=== PATIENT | female | born 2000 ===

== ENCOUNTER 2024-11-15 12:32 | Outpatient (OUT) | payer BC, SELFPAY ==
[2024-11-15 13:06] LABS: Hematocrit 41.9 % (36.0-48.0); Hemoglobin 14.8 g/dL (12.0-16.0); Immature Granulocytes Abs Auto 0.06 10^3/uL (0.00-0.03); Immature Granulocytes Pct Auto 0.4 % (0.0-0.5); Lymphocytes Absolute Auto 1.9 10^3/uL (1.2-3.8); Mean Corpuscular HGB Conc 35.3 g/dL (29.9-35.2); Mean Corpuscular Hemoglobin 31.2 pg (26.7-34.0); Mean Corpuscular Volume 88.4 fL (81.0-99.0); Platelet Count 343 10^3/uL (150-450); Red Blood Count 4.74 10^6/uL (4.20-5.40); White Blood Count 15.7 10^3/uL (4.0-11.0)
[2024-11-15 13:47] LABS: Cannabinoid Screen Urine NEGATIVE (NEGATIVE); Methamphetamines Screen Urine NEGATIVE (NEGATIVE); Tricyclic Antidepressant Urine NEGATIVE (NEGATIVE)
[2024-11-16 06:07] LABS: Rubella Antibodies, IgG 5.30 index (Immune >0.99)
[2024-11-16 12:09] LABS: Rapid Plasma Reagin, Quant Non Reactive titer (NonRea<1:1)
== END 2024-11-15 12:33 | disposition home or self-care (01) ==
LOC: LAB 12:34
PROVIDERS: PCP Nurse Practitioner Family; Visit Provider Obstetrics & Gynecology
DX: Z34.01 Encounter for supervision of normal first pregnancy, first trimester (principal); N92.6 Irregular menstruation, unspecified
CPT/HCPCS: 36415; 80307; 83036; 85025; 86592; 86762; 86803; 86850; 86900; 86901; 87077; 87086; 87186; 87340; 87389

== ENCOUNTER 2024-12-16 14:50 | Outpatient (REF) | payer BC, SELFPAY ==
--- OUTSIDE RECORDS SUMMARY | 2024-12-16 09:10 | XMS_ITS | Encounter Summary ---
Author Organization [facility] Address [address] [place] [address] Care Team Providers Care Associate Professor Of Pathology Name Role Phone Unavailable Primary Care Provider Unavailabl e Reason for Visit * ReasonCommentsRoutine Visit Encounter Details DateTypeDepartmentCare Team (Latest Contact Info)Mlqksrgfouy92/06/2025 9:10 AM ESTRoutine [facility] [address] [place] [phone] Isaías Fisher, [address] [place] [phone] Second trimester ([facility]); 15 weeks gestation of ([facility]); Screening, , for anatomic survey ([facility]) Social History Tobacco UseTypesPacks/DayYears UsedDateSmoking Tobacco: Never Assessed Estimated Date of CtyzxkzaZaxmjhjhWwq97/28/2026ased on Ultrasound, FHR- 120Sex and Gender InformationValueDate RecordedSex Assigned at TzxqmMemhru45/31/2025 9:39 AM EDTLegal TdmBcjssd06/20/2025 10:38 AM EDTGender YqvikfzdQpqiwi37/31/2025 9:39 AM EDTSexual ZmsvnhsqxrfWxocvevv57/31/2025 9:39 AM EDTdocumented as of this encounter Last Filed Vital Signs Vital SignReadingTime TakenCommentsBlood Amjvzpet359/6412/16/2024 9:39 AM EST Pulse--Temperature--Respiratory Rate--Oxygen Saturation--Inhaled Oxygen Concentration--Mqyomp67.7 kg (200 lb)12/16/2024 9:39 AM ESTHeight--Body Mass Index--documented in this encounter Plan of Treatment DateTypeDepartmentCare Team (Latest Contact Info)Iofynxosrve29/08/2025 10:30 AM ESTAncillary Procedure [facility] [address] [place] [phone] 01/17/2025 11:30 AM ESTRoutine [facility] [address] [place] [phone] Aye Castillo PA [address] [place] [address] NameTypePriorityAssociated DiagnosesOrder SchedulePap SmearPathology and CytologyRoutine Second trimester ([facility]) Ordered: 5Alpha fetoprotein, maternalLabRoutine Second trimester ([facility]) Expected: 12/16/2024 (Approximate), Expires: 02/15/2025SURESWAB(R) ADVANCED VAGINITIS PLUS, TMAPathology and CytologyRoutine Second trimester ([facility]) Ordered: 5CHLAMYDIA TRACHOMATIS (GENITO/STI)LabRoutine Second trimester ([facility]) Ordered: 12/16/2024Neisseria gonorrhea DNA probe, directLabRoutine Second trimester ([facility]) Ordered: 12/16/2024US OB 14+ weeks anatomy scanImagingRoutine Screening, , for anatomic survey ([facility]) Expected: 12/16/2024, Expires: 03/18/2025documented as of this encounter Procedures Procedure NamePriorityDate/TimeAssociated DiagnosisCommentsPOCT URINALYSIS OIZCZFSRPiufavr94/06/2025 9:39 AM EST 15 weeks gestation of ([facility]) documented in this encounter Results * POCT urinalysis dipstick manually resulted (12/16/2024 9:39 AM EST)Component ValueRef RangeTest MethodAnalysis TimePerformed AtPathologist SignatureColor, UAYellowClarity, UAClearGlucose, UANegativeNegative - 1999(110) ++++ mg/dL Bilirubin, UANegativeNegative - 4(70) +++ mg/dLKetones, UANegativeNegative - 160(16) ++++ mg/dLSpec Grav, UA1.0101 - 1.03Blood, UANegativeNegative - 50 Neftaly/mcLpH, UA6.55 - 9Protein, UANegativeNegative - 2000(20) ++++ mg/dL Urobilinogen, UA1.00.2 - 12 mg/dLLeukocytes, UANegativeNegative - 500+++ Stuart/mcLNitrite, UANegativeNegative - PositiveSpecimen (Source)Anatomical Location / LateralityCollection Method / VolumeCollection TimeReceived Time Urine12/16/2024 9:39 AM EST Narrative Authorizing ProviderResult TypeResult StatusCorey Phillip DOPOINT OF CARE TEST ENTER/EDIT ORDERABLESFinal Result documented in this encounter Visit Diagnoses Diagnosis Second trimester ([facility]) state, incidental 15 weeks gestation of ([facility]) Screening, , for anatomic survey ([facility]) Encounter for anatomic survey documented in this encounter
--- OUTSIDE RECORDS SUMMARY | 2024-12-16 14:54 | XMS_ITS ---
Author Organization [facility] Source Produ ction (ClinicalSummary Clone) Address Unknown Care Team Providers Care Shear Assembler Name Role Phone Unavailable Primary Care Physician Unavailab le Results * [UNITY] ANEUPLOIDY NIPT Performed by: Viddyad Component Value Range Date Fraction 4.0% 11/20/2024 07:09 am UTCRh(D) NIPTRhD GFXROQPB45/11/2025 07:09 am UTCSex Chromosome AneuploidyNOT WBNHBPZL49/11/2025 07:09 am UTCMonosomy XLOW RISK <1 in 07:09 am UTCTrisomy 13LOW RISK <1 in 07:09 am UTCTrisomy 18LOW RISK <1 in 07:09 am UTCTrisomy 21LOW RISK <1 in 07:09 am UTCFetal UnrNNBC86/11/2025 07:09 am UTCPregnancy NnkbkhekrFGMVMAPHT72/11/2025 07:09 am UTCFor detailed report, see PDFSee PDF 11/20/2024 07:09 am UTC1 07:09 am UTC Social History Observation Value Start Date End Date
--- OUTSIDE RECORDS SUMMARY | 2024-12-16 14:54 | XMS_ITS | Encounter Summary ---
Author Organization [facility] Address [address] [place] [address] Care Team Providers Care Loftsman/Woman Name Role Phone Unavailable Primary Care Provider Unavailabl e Encounter Details DateTypeDepartmentCare Team (Latest Contact Info)Jeyiopndafg76/06/2025amboo flowsheet [facility] [address] [place] [address] Isaías Fisher DO [address] [place], [place] [phone] Social History Tobacco UseTypesPacks/DayYears UsedDateSmoking Tobacco: Never Assessed Estimated Date of BganpnmmKaftsipsMez02/28/2026Based on Ultrasound, FHR- 120Sex and Gender InformationValueDate RecordedSex Assigned at MiobxKisbom15/31/2025 9:39 AM EDTLegal OxmXcjrgn20/20/2025 10:38 AM EDTGender YixxpyicLofcfb20/31/2025 9:39 AM EDTSexual BnvqslkooiqGzahoqxl26/31/2025 9:39 AM EDTdocumented as of this encounter Plan of Treatment DateTypeDepartmentCare Team (Latest Contact Info)Sguwuksnvjh73/08/2025 10:30 AM ESTAncillary Procedure [facility] [address] [place] [address] 01/17/2025 11:30 AM ESTRoutine [facility] [address] [place] [phone] Aye Castillo PA [address] [place] [address] [place] [address] documented as of this encounter Visit Diagnoses Not on filedocumented in this encounter
--- OUTSIDE RECORDS SUMMARY | 2024-12-16 14:54 | XMS_ITS ---
Author Organization [facility] Source Produ ction (ClinicalSummary Clone) Address Unknown Care Team Providers Care Information Technology Architect Name Role Phone Unavailable Primary Care Physician Unavailab le Results * [UNITY] CARRIER SCREEN Performed by: Pursuit Management Component Value Range Date Sickle Cell Disease/Beta-Thalassemia/Hemoglobino pathies carrier screen NEGATIVE 11/23/2024 01:38 am UTCAlpha-Thalassemia carrier fdvxjcCFDNHEHS57/14/2025 01:38 am UTCCystic Fibrosis carrier skhentTXITHHTU58/14/2025 01:38 am UTCSpinal Muscular Atrophy carrier screenNEGATIVE 2 SMN1 copies, SNP not scmaykv6411/23/2024 01:38 am UTCFor detailed report, see PDFSee PDF11/23/2024 01:38 am UTC 11/23/2024 01:38 am UT Social History Observation Value Start Date End Date
--- OUTSIDE RECORDS SUMMARY | 2024-12-16 14:55 | XMS_ITS | Clinical Summary ---
Author Organization [facility] Address [address], [address] [place] [address] Care Team Providers Care Application Packaging Specialist Name Role Phone Jose MariaHeather cuetolala Loera DO Primary Care Provider [phone] Allergies No known active allergies Medications No known medications Active Problems No known active problems Family History Medical HistoryRelationNameCommentsPsoriasisMotherJessica [facility] HospitalRelationName StatusCommentsMotherJessica [facility] Social History Tobacco UseTypesPacks/DayYears UsedDateSmoking Tobacco: NeverSmokeless Tobacco: Never Comments:NA Alcohol UseStandard Drinks/WeekCommentsNot Currently0 (1 standard drink = 0.6 oz pure alcohol)AUDIT-CAnswerDate RecordedQ1: How often do you have a drink containing alcohol?Never10/21/2022Q2: How many drinks containing alcohol do you have on a typical day when you are drinking?Patient does not drink10/21/2022Q3: How often do you have six or more drinks on one occasion?Never10/21/2022Overall Financial Resource Strain (CARDIA)AnswerDate RecordedHow hard is it for you to pay for the very basics like food, housing, medical care, and heating?Not hard at all07/02/2023HQ-2AnswerDate RecordedPHQ-9 Total Gzdhl702Exercise Vital SignAnswerDate RecordedOn average, how many days per week do you engage in moderate to strenuous exercise (like a brisk walk)?4 days05/20/2024On average, how many minutes do you engage in exercise at this level?60 min06/30/2023Hunger Vital SignAnswerDate RecordedWithin the past 12 months, you worried that your food would run out before you got the money to buymore.Never true07/02/2023 Within the past 12 months, the food you bought just didn't last and you didn't have money to get more.Never true07/02/2023RAPARE - TransportationAnswerDate RecordedLack of Transportation (Medical)Not on file07/02/2023In the past 12 months, has lack of transportation kept you from meetings, work, or from getting things needed for daily living?No07/02/2023Housing Stability Vital SignAnswer Date RecordedUnable to Pay for Housing in the Last YearNot on file07/02/2023 Number of Places Lived in the Last YearNot on file07/02/2023In the last 12 months, was there a time when you did not have a steady place to sleep or slept in elizabethelter (including now)?No07/02/2023Food InsecurityAnswerDate RecordedWithin the past 12 months, you worried that your food would run out before you got the money to buymore.Within the past 12 months, the food you bought just didn't last and you didn't have money to get more.Interpersonal Safety Domain Source: IP Abuse ScreeningAnswerDate RecordedRead-Only, Retired: Physical BucwlOorjzl46/11/2023Read-Only, Retired: Verbal GwqfdRdzjhg48/11/2023 Read-Only, Retired: Emotional uxddbBqpehc23/11/2023Read-Only, Retired: Financial SwnmmKesujj45/11/2023Read-Only, Retired: Sexual zvmetCeciof91/11/2023 CommentsNoSex and Gender InformationValueDate RecordedSex Assigned at Ivsrwi2403/18/2023 3:34 PM ESTLegal LgcGyetis88/10/2013 1:18 PM ESTGender Identity Avuhll4203/18/2023 3:34 PM ESTSexual PzvqkvaoebyXpnegquk16/06/2024 3:34 PM EST Last Filed Vital Signs Vital SignReadingTime TakenCommentsBlood Uoxjcies404/8401/28/2024 7:05 AM EST Dqjhl954801/28/2024 7:05 AM ACXHtmardwqtxs46.8 ??C (98.3 ??F)10/21/2022 8:34 AM EDTRespiratory Ygne167610/21/2022 8:34 AM EDTOxygen Uccphvjsth79%01/28/2024 7:05 AM ESTInhaled Oxygen Concentration--Ljnrcy51.1 kg (214 lb)01/28/2024 7:05 AM EST Xkhxek065.1 cm (5' 5 )01/28/2024 7:05 AM ESTBody Mass Index35.6101/28/2024 7:05 AM EST Plan of Treatment Health MaintenanceDue DateLast DoneCommentsVaricella vaccine (1 of 2 - 13+ 2- dose series)2012HIV zmptst7203/14/2014HPV vaccine (1 - 3-dose series) 2014Hepatitis C ntylpc5903/14/2017DTaP/Tdap/Td vaccine (1 - Tdap)2018 Hepatitis B vaccine (1 of 3 - 19+ 3-dose series)2018Flu vaccine (#1) 09/10/2024OVID-19 Vaccine (2023- season)2024Depression Screen 512/, 4Pap smear07/01//Hepatitis A vaccine Aged OutNo longer eligible based on patient's age to complete this topicHib vaccineAged OutNo longer eligible based on patient's age to complete this topic Meningococcal (ACWY) vaccineAged OutNo longer eligible based on patient's age to complete this topicMeningococcal B vaccineAged OutNo longer eligible based on patient's age to complete this topicPneumococcal 0-49 years VaccineAged OutNo longer eligible based on patient's age to complete this topicPolio vaccineAged OutNo longer eligible based on patient's age to complete this topic Procedures Procedure NamePriorityDate/TimeAssociated DiagnosisCommentsGYN CYTOLOGYRoutine 07/02/2023 12:00 AM EDT from Last 3 Months or Most Recently Relevant to Health Maintenance Results * ROUGHING MILL OPERATOR Cytology (07/02/2023 12:00 AM EDT)ComponentValueRef RangeTest Method Analysis TimePerformed AtPathologist SignatureCytology ReportPath Number: [id number] DIAGNOSIS Imaged ThinPrep Pap - Cervical (1 monolayer slide): Specimen Adequacy: ? Satisfactory for evaluation. ? - Endocervical/transformation zone component present. Descriptive Diagnosis: ? Negative for intraepithelial lesion or malignancy. ?? Cytotech Screener: ??EY Electronically Signed Out Brigette Young CT(ASCP) /07/17/2023 Source of Specimen: A: Imaged ThinPrep Pap - Cervical (1 monolayer slide) HPV Reflex?......................HPV if Abnormal Clinical History Z12.4 Encounter for screening for malignant neoplasm of cervix LMP: ??06/21/23 Processing Lab: [address] [address] Interpretation performed at [address] [address] This Pap Test has been evaluated with the assistance of the AgentBridgePrep Pap Test Imaging System. The Pap smear is a screening test primarily for squamous epithelial lesions, which is subject to both false negative and false positive results. Your patient should be reminded to consult you immediately if she experiences any suspicious signs or symptoms, regardless of her Pap smear result. GYNECOLOGIC CYTOLOGY REPORT Patient Name: OLIVA DODSON [facility] Rec: [id number] [facility] ??[facility] ANATOMIC PATHOLOGY [address] [place] [address]. ??[place], [place] [address] bon [facility] LABSSpecimen (Source)Anatomical Location / LateralityCollection Method / VolumeCollection TimeReceived Time CERVICAL PFARURHA77/ 8:12 AM EDT Narrative Authorizing ProviderResult TypeResult StatusJetsering Root DO PATHOLOGY/CYTOLOGY ORDERABLESFinal ResultPerforming OrganizationAddress City/State/ZIP CodePhone Number [facility] [address] [place] [address], [facility] [phone] [facility] from Last 3 Months or Most Recently Relevant to Health Maintenance Insurance Care Teams Team MemberRelationshipSpecialtyStart DateEnd Date Melani Root DO [address] [place] [address] PCP - GeneralFamily Jxnbtlnx56/2/19
--- OUTSIDE RECORDS SUMMARY | 2024-12-16 14:55 | XMS_ITS | Clinical Summary ---
Author Organization [facility] Address [address] [place] [address] Care Team Providers Care Auto Rental Clerk Name Role Phone Unavailable Primary Care Provider Unavailabl e Allergies No known active allergies Medications MedicationSigDispense QuantityRefillsLast FilledStart DateEnd DateStatus nitrofurantoin, macrocrystal-monohydrate, (Macrobid) 100 MG capsule Indications:E. coli infectionTake 1 capsule (100 mg) by mouth in the morning and 1 capsule (100 mg) before bedtime. Do all this for 7 days. 14 capsule Expired Encounters DateTypeDepartmentCare CvsiRsrygdhsgpy98/06/2025 9:10 AM ESTRoutine NOMHannah ARRIAZA [address] [place] [address] [place] [address] Isaías Fisher, Second trimester ([facility]); 15 weeks gestation of ([facility]); Screening, , for anatomic survey ([facility])12/16/2024amboo flowsheet [facility] Brisa ARRIAZA [address] [place] [address] Isaías Fisher DO 11/23/2024bstract [facility] Brisa ARRIAZA [address] [place] [address] [place] [address] Laurence Robbins, PRINCE 11/22/2024bstract [facility] [place] [address] Isaías Fisher, DO 11/22/2024Telephone [facility] [address] [place] [address] Isaías Fisher, DO 11/22/2024bstract [facility] [address] [place] [address] Isaías Fisher, DO 11/15/2024 11:30 AM EDTRoutine [facility] [address] [place] [address] Laurence Robbins NP First trimester ([facility]); 10 weeks gestation of ([facility])11/15/2024linisync Result Encounter [facility] External Department Unsolicited Laurence Robbins NP 11/15/2024amboo flowsheet [facility] [address] [place] [address] Laurence Robbins NP 11/15/20240684Phpitn18/05/2025 9:30 AM EDTInitial [facility] Brisa GARCIAGYN [address] [place] [phone] GA: 6w3d10/15/2024 9:00 AM EDTAncillary Procedure [facility] [address] [place] [address] Missed menses; Positive urine test ([facility])10/12/20249498Fqvvej29/31/2025Travelfrom Last 3 Months Social History Tobacco UseTypesPacks/DayYears UsedDateSmoking Tobacco: Never Assessed Estimated Date of VfdntssfYkkuinrkEjp87/28/2026ased on Ultrasound, FHR- 120Sex and Gender InformationValueDate RecordedSex Assigned at RnqlmEecctz08/31/2025 9:39 AM EDTLegal SlvRassyl66/20/2025 10:38 AM EDTGender RmmtltjkRhvpuq22/31/2025 9:39 AM EDTSexual YnmunvybeffLsdkwuyi12/31/2025 9:39 AM EDT Last Filed Vital Signs Vital SignReadingTime TakenCommentsBlood Qzfjgvax127/6412/16/2024 9:39 AM EST Pulse--Temperature--Respiratory Rate--Oxygen Saturation--Inhaled Oxygen Concentration--Cbvdfi12.7 kg (200 lb)12/16/2024 9:39 AM ESTHeight--Body Mass Index-- Plan of Treatment DateTypeDepartmentCare Team (Latest Contact Info)Vldrxzviczx12/08/2025 10:30 AM ESTAncillary Procedure [facility] Brisa ARRIAZA [address] [place] [address] 01/17/2025 11:30 AM ESTRoutine [facility] Brisa ARRIAZA [address] [place] [address] Aye [place] PA [address] [facility] [facility] [address] [place], [place] [phone] Procedures Procedure NamePriorityDate/TimeAssociated DiagnosisCommentsPOCT URINALYSIS APRNNKCQJgfsroc25/06/2025 9:39 AM EST 15 weeks gestation of ([facility]) HBSAG JHMLDZSyfdgnp59/06/2025 12:44 PM EDT RAPID PLASMA REAGIN, AUGGBEhqujql84/06/2025 12:44 PM EDT MLR HEMOGLOBIN I6SWktwcnv25/06/2025 12:44 PM EDT HIV AB/P24 AG WITH JHLTNYTlkzphr07/06/2025 12:44 PM EDT HCV ANTIBODY RFX TO QUANT BUCBrgxrxh08/06/2025 12:44 PM EDT ALL RUBELLA IGG UJNgnikqv54/06/2025 12:44 PM EDT ALL TYPE AND IHNQZUGnbjbnx14/06/2025 12:44 PM EDT ALL CBC WITH AUTO OICFJzqfdha18/06/2025 12:44 PM EDT BOX JZITJbzjmjl38/06/2025 12:44 PM EDT TBH DRUG SCREEN RAPID (URINE)Olaglmn4111/15/2024 12:35 PM EDT POCT URINALYSIS FTCNTUIROhnmkri24/06/2025 11:37 AM EDT First trimester ([facility]) POCT URINALYSIS CIBNWTFXKojhqtw33/05/2025 9:31 AM EDT Missed menses POCT , CVEGJKbigqkp27/05/2025 9:31 AM EDT Missed menses US OB CFEDURDIEAEJHrzsofe64/05/2025 9:17 AM EDT Missed menses Positive urine test ([facility]) from Last 3 Months Results * POCT urinalysis dipstick manually resulted (12/16/2024 9:39 AM EST) Only the most recent of3 resultswithin the time period is included. ComponentValueRef RangeTest MethodAnalysis TimePerformed AtPathologist Signature Color, UAYellowClarity, UAClearGlucose, UANegativeNegative - 1999(110) ++++ mg/dLBilirubin, UANegativeNegative - 4(70) +++ mg/dLKetones, UANegativeNegative - 160(16) ++++ mg/dLSpec Grav, UA1.0101 - 1.03Blood, UANegativeNegative - 50 Neftaly/mcLpH, UA6.55 - 9Protein, UANegativeNegative - 2000(20) ++++ mg/dL Urobilinogen, UA1.00.2 - 12 mg/dLLeukocytes, UANegativeNegative - 500+++ Stuart/mcL Nitrite, UANegativeNegative - PositiveSpecimen (Source)Anatomical Location / LateralityCollection Method / VolumeCollection TimeReceived DzgqQfudn30/06/2025 9:39 AM EST Narrative Authorizing ProviderResult TypeResult StatusCorey Phillip DOPOINT OF CARE TEST ENTER/EDIT ORDERABLESFinal Result * BOX TEST (11/15/2024 12:44 PM EDT)ComponentValueRef RangeTest MethodAnalysis TimePerformed AtPathologist SignatureBOX TEST SENT SIRpupqoERFAKK2flagqUSZBJZ3 11/15/24TBHSpecimen (Source)Anatomical Location / LateralityCollection Method / VolumeCollection TimeReceived Time11/15/2024 12:44 PM EDT1 1:00 PM EDT Narrative [facility] - 11/15/2024 1:06 PM EDT Authorizing ProviderResult TypeResult StatusKristina Rosendo NPLAB BLOOD ORDERABLESFinal ResultPerforming OrganizationAddressCity/State/ZIP CodePhone Number [facility] * HBSAG SCREEN (11/15/2024 12:44 PM EDT)ComponentValueRef RangeTest Method Analysis TimePerformed AtPathologist SignatureHBSAG SCREENNegativeNegativeTBH Comment: Performed at: ??CB - [facility] [address] ??[id number] Supervisor Plate Forming: Jaswinder Ferrer PhD, Phone: ??[phone] Specimen (Source)Anatomical Location / LateralityCollection Method / Volume Collection TimeReceived Time11/15/2024 12:44 PM EDT1 1:00 PM EDT Narrative [facility] - 11/16/2024 12:09 PM EDT Authorizing ProviderResult TypeResult StatusCorey Phillip DOLAB BLOOD ORDERABLES Final ResultPerforming OrganizationAddressCity/State/ZIP CodePhone Number [facility] * RAPID PLASMA REAGIN, QUANT (11/15/2024 12:44 PM EDT)ComponentValueRef Range Test MethodAnalysis TimePerformed AtPathologist SignatureRAPID PLASMA REAGIN, QUANTNon ReactiveNonRea<1:1 titerTBHComment: Please Note: This test does not meet current guidelines for screening and diagnosis of syphilis. This test is intended for following treatment response in patients being treated for syphilis infection. To screen for syphilis infection, a reflex cascade that includes both RPR and a treponema-specific assay should be utilized, such as Treponema pallidum (Syphilis) Screening [place] (883370) or Rapid Plasma Reagin (RPR) Test With Reflex to Quantitative RPR and Confirmatory Treponema pallidum Antibodies (047564). Performed at: ??[address] ??[id number] Supervisor Plate Forming: Jaswinder Ferrer PhD, Phone: ??[phone] Specimen (Source)Anatomical Location / LateralityCollection Method / Volume Collection TimeReceived Time11/15/2024 12:44 PM EDT1 1:00 PM EDT Narrative [facility] - 11/16/2024 12:09 PM EDT Authorizing ProviderResult TypeResult StatusCorey Phillip DOLAB BLOOD ORDERABLES Final ResultPerforming OrganizationAddressCity/State/ZIP CodePhone Number [facility] * HIV AB/P24 AG WITH REFLEX (11/15/2024 12:44 PM EDT)ComponentValueRef RangeTest MethodAnalysis TimePerformed AtPathologist SignatureHIV AB/P24 AG SCREENNon ReactiveNon ReactiveTBHComment: HIV-1/HIV-2 antibodies and HIV-1 p24 antigen were NOT detected. There is no laboratory evidence of HIV infection. HIV Negative Performed at: ??[address] ??[id number] Supervisor Plate Forming: Jaswinder Ferrer PhD, Phone: ??[phone] Specimen (Source)Anatomical Location / LateralityCollection Method / Volume Collection TimeReceived Time11/15/2024 12:44 PM EDT1 1:00 PM EDT Narrative [facility] - 11/16/2024 5:07 AM EDT Authorizing ProviderResult TypeResult StatusCorey Phillip DOLAB BLOOD ORDERABLES Final ResultPerforming OrganizationAddressCity/State/ZIP CodePhone Number [facility] * HCV ANTIBODY RFX TO QUANT PCR (11/15/2024 12:44 PM EDT)ComponentValueRef Range Test MethodAnalysis TimePerformed AtPathologist SignatureHCV ABNon ReactiveNon ReactiveTBHINTERPRETATION:Comment.TBHComment: Not infected with HCV unless early or acute infection is suspected (which may be delayed in an immunocompromised individual), or other evidence exists to indicate HCV infection. Specimen (Source)Anatomical Location / LateralityCollection Method / Volume Collection TimeReceived Time11/15/2024 12:44 PM EDT1 1:00 PM EDT Narrative [facility] - 11/16/2024 6:07 AM EDT Authorizing ProviderResult TypeResult StatusCorey Phillip WEI BLOOD ORDERABLES Final ResultPerforming OrganizationAddressCity/State/ZIP CodePhone Number [facility] * MLR HEMOGLOBIN A1C (11/15/2024 12:44 PM EDT)ComponentValueRef RangeTest Method Analysis TimePerformed AtPathologist SignatureGLYCOHEMOGLOBIN A1C5.64.5 - 6.2 %TBHComment: ADA RECOMMENDED LIMIT 4.0 - 6.0 ADA THERAPEUTIC TARGET < 7.0 ACTION SUGGESTED > 7.0 ESTIMATED AVERAGE RGONJHU946su/dLTBHSpecimen (Source)Anatomical Location / LateralityCollection Method / VolumeCollection TimeReceived Time11/15/2024 12:44 PM EDT1 1:00 PM EDT Narrative [facility] - 11/15/2024 3:59 PM EDT Authorizing ProviderResult TypeResult StatusCorey Phillip DOCLINISYNCFinal Result Performing OrganizationAddressty/State/ZIP CodePhone Number [facility] * ALL TYPE AND SCREEN (11/15/2024 12:44 PM EDT)ComponentValueRef RangeTest MethodAnalysis TimePerformed AtPathologist SignatureBLOOD TYPEO PositiveTBH ANTIBODY SCREENNEGATIVETBHSpecimen (Source)Anatomical Location / Laterality Collection Method / VolumeCollection TimeReceived Time11/15/2024 12:44 PM EDT 11/15/2024 1:00 PM EDT Narrative [facility] - 11/15/2024 1:59 PM EDT [facility] , ?? Authorizing ProviderResult TypeResult StatusCorey Phillip DOCLINISYNCFinal Result Performing OrganizationAddConemaugh Nason Medical Centerty/State/ZIP CodePhone Number [facility] * ALL RUBELLA IGG AB (11/15/2024 12:44 PM EDT)ComponentValueRef RangeTest Method Analysis TimePerformed AtPathologist SignatureRUBELLA ANTIBODIES, IGG5.30 Immune >0.99 indexTBHComment: Non-immune <0.90 ?Equivocal ??0.90 - 0.99 Immune >0.99 Performed at: ??[facility] - [facility] [address] [place] [id number] Supervisor Plate Forming: Jaswinder Ferrer PhD, Phone: ??[phone] Specimen (Source)Anatomical Location / LateralityCollection Method / Volume Collection TimeReceived Time11/15/2024 12:44 PM EDT1 1:00 PM EDT Narrative [facility] - 11/16/2024 6:07 AM EDT Authorizing ProviderResult TypeResult StatusCorey Phillip DOCLINISYNCFinal Result Performing OrganizationAddressCity/State/ZIP CodePhone Number [facility] * (ABNORMAL) ALL CBC WITH AUTO DIFF (11/15/2024 12:44 PM EDT)ComponentValueRef RangeTest MethodAnalysis TimePerformed AtPathologist SignatureTBH WBC15.7(H) 4.0 - 11.0 10 3/uLTBHTBH RBC4.744.20 - 5.40 10 6/uLTBHTBH HGB14.812.0 - 16.0 g/dLTBHTBH HCT41.936.0 - 48.0 %TBHTBH MCV88.481.0 - 99.0 fLTBHTBH MCH31.226.7 - 34.0 pgTBHTBH MCHC35.3(H)29.9 - 35.2 g/dLTBHTBH RDW12.111.0 - 15.0 %TBHTBH [id number] - 450 10 3/uLTBHTBH MPV10.79.5 - 13.5 fLTBHNEUTROPHILS PERCENT AUTO 81.5(H)43.0 - 75.0 %TBHLYMPHOCYTES PERCENT AUTO12.3(L)20.5 - 60.0 %TBH MONOCYTES PERCENT AUTO4.61.7 - 12.0 %TBHTBH EO %0.90.9 - 7.0 %TBHBASOPHILS PERCENT AUTO0.30.2 - 2.0 %TBHIMMATURE GRANULOCYTES PCT AUTO0.40.0 - 0.5 %TBH NEUTROPHILS ABSOLUTE AUTO12.8(H)1.4 - 6.5 10 3/uLTBHLYMPHOCYTES ABSOLUTE AUTO 1.91.2 - 3.8 10 3/uLTBHMONOCYTES ABSOLUTE AUTO0.70.3 - 0.8 10 3/uLTBHTBH EO # 0.10.0 - 0.7 10 3/uLTBHBASOPHILS ABSOLUTE AUTO0.10.0 - 0.1 10 3/uLTBHIMMATURE GRANULOCYTES ABS AUTO0.06(H)0.00 - 0.03 10 3/uLTBHSpecimen (Source)Anatomical Location / LateralityCollection Method / VolumeCollection TimeReceived Time 11/15/2024 12:44 PM EDT1 1:00 PM EDT Narrative [facility] - 11/15/2024 1:12 PM EDT Authorizing ProviderResult TypeResult StatusCorey Phillip DOCLINISYNCFinal Result Performing OrganizationAddressCity/State/ZIP CodePhone Number [facility] * TBH DRUG SCREEN RAPID (URINE) (11/15/2024 12:35 PM EDT)ComponentValueRef Range Test MethodAnalysis TimePerformed AtPathologist SignatureCANNABINOID SCREEN URINENEGATIVENEGATIVETBHPHENCYCLIDINE SCREEN URINENEGATIVENEGATIVETBHCOCAINE SCREEN URINENEGATIVENEGATIVETBHMETHAMPHETAMINES SCREEN URINENEGATIVENEGATIVE TBHOPIATE SCREEN URINENEGATIVENEGATIVETBHAMPHETAMINE SCREEN URINENEGATIVE NEGATIVETBHBENZODIAZEPINES SCREEN URINENEGATIVENEGATIVETBHTRICYCLIC ANTIDEPRESSANT URINENEGATIVENEGATIVETBHMETHADONE SCREEN URINENEGATIVENEGATIVE TBHBARBITURATES SCREEN URINENEGATIVENEGATIVETBHOXYCODONE SCREEN URINENEGATIVE NEGATIVETBHBUPRENORPHINE SCREEN URINENEGATIVENEGATIVETBHComment: DRUG CLASS TEST SYSTEM CUT-OFF CONCENTRATIONS ARE FOLLOWS: AMP (Amphetamine): 500 ng/mL BAR (Barbiturates): 200 ng/mL BZO (Benzodiazepines): 150 ng/mL BUP (Buprenorphine): 10 ng/mL MEMO (Cocaine): 150 ng/mL mAMP (Methamphetamine): 500 ng/mL MTD (Methadone): 200 ng/mL OPI (Opiates): 100 ng/mL OXY (Oxycodone): 100 ng/mL PCP (Phencyclidine): 25 ng/mL THC (Cannabinoids): 50 ng/mL TCA (Trycyclic Antidepressants): 300 ng/mL Specimen (Source)Anatomical Location / LateralityCollection Method / Volume Collection TimeReceived Time11/15/2024 12:35 PM EDT1 1:00 PM EDT Narrative [facility] - 11/15/2024 1:47 PM EDT Authorizing ProviderResult TypeResult StatusCorey Phillip DOCLINISYNCFinal Result Performing OrganizationAddressCity/State/ZIP CodePhone Number [facility] * (ABNORMAL) POCT , urine manually resulted (10/15/2024 9:31 AM EDT) ComponentValueRef RangeTest MethodAnalysis TimePerformed AtPathologist SignaturePreg Test, UrPositiveNegativeSpecimen (Source)Anatomical Location / LateralityCollection Method / VolumeCollection TimeReceived TimeUrine 10/15/2024 9:31 AM EDT Narrative Authorizing ProviderResult TypeResult StatusCorey Phillip DOPOINT OF CARE TEST ENTER/EDIT ORDERABLESFinal Result * OB transvaginal (10/15/2024 9:17 AM EDT)Anatomical RegionLateralityModality BodyUltrasoundSpecimen (Source)Anatomical Location / LateralityCollection Method / VolumeCollection TimeReceived Time10/15/2024 2:06 PM EDT Impressions 10/15/2024 2:31 PM EDT IMPRESSION: ?? 1. Findings consistent with a live intrauterine gestation, current sonographic age of 6 weeks and3 ??days resulting in an estimated date of delivery of June 05, 2025. 2. ??Left ovarian complex cyst, complex features atypical for a corpus luteum cyst. ??Follow up examinations may be of assistance if this is a new finding. TRANSCRIBED BY: ? ELECTRONICALLY SIGNED BY: Иван Kyle MD Narrative 10/15/2024 2:31 PM EDT FINDINGS: A single intrauterine gestational sac is present. ??No subchorionic hemorrhage. ??A single pole is present. Normal heart rate at 120 beats per minute. ??Yolk sac also is seen. ?? Current sonographic age is 6 weeks and ??3days based on the crown-rump length measurement of 6 mm. ??Based on this age, current estimated date of delivery is June 07, 2025 ??No pelvic fluid or adnexal mass present. ??Closed cervix , ??3.8 cm in length. ?? Complex multiseptated left ovarian cystic structure, non-shadowing with partial soft tissue component occupies the majority of the left ovary 4.4 x 3.5 x 3.6 cm. Procedure Note Иван Kyle MD - 10/15/2024 FINDINGS: A single intrauterine gestational sac is present. No subchorionichemorrhage. A single pole is present. Normal heart rate at120 beats per minute. Yolk sac also is seen. Current sonographic age is6 weeks and 3days based on the crown-rump length measurement of 6 mm.Based on this age, current estimated date of delivery is June 07, 2025No pelvic fluid or adnexal mass present. Closed cervix , 3.8 cm inlength. Complex multiseptated left ovarian cystic structure, non-shadowing withpartial soft tissue component occupies the majority of the left ovary 4.4x 3.5 x 3.6 cm. IMPRESSION: IMPRESSION: 1. Findings consistent with a live intrauterine gestation, currentsonographic age of 6 weeks and3 days resulting in an estimated date ofdelivery of June 05, 2025. 2. Left ovarian complex cyst, complex features atypical for a corpusluteum cyst. Follow up examinations may be of assistance if this is a newfinding. TRANSCRIBED BY: ELECTRONICALLY SIGNED BY: Иван Kyle MD Authorizing ProviderResult TypeResult StatusCorey Phillip ARNOLDMG OB US PROCEDURES Final Result from Last 3 Months Insurance
[2024-12-21 11:08] LABS: Age Gdln ACOG Testing Note (.); IGP, rfx Aptima HPV ASCU Note (.)
== END 2024-12-16 14:51 | disposition home or self-care (01) ==
LOC: LAB 14:50
PROVIDERS: PCP Nurse Practitioner Family; Visit Provider Obstetrics & Gynecology
DX: Z01.419 Encounter for gynecological examination (general) (routine) without abnormal findings (principal)
CPT/HCPCS: 88175